=== PATIENT | female | born 1975 | race Caucasian/White ===

== ENCOUNTER 2017-09-19 14:18 | Emergency (ER) | payer MEDICAID ==
--- NOTE | 2017-09-19 14:23 | ER Report ---
History and Physical Time Seen By MD: 14:23 Hx. of Stated Complaint: Laceration left forearm HPI/ROS Patient is a 41-year-old female from [facility] is here with her significant other she was helping to change a tire on a semi-received a laceration to her left upper forearm noted there are 2 lacerations both 3 inches across with venous ooze noted. Injury happened 1 hour ago at unknown truck stop Allergies: Coded Allergies: No Known Drug Allergies (Unverified , 09/19/17) Home Meds Active Scripts Hydrocodone Bit/Acetaminophen (NORCO 5-325 TABLET) 1 Each Tablet, 1 EACH PO Q4- 6H Y for PAIN, #12 TAB Prov:KATERINE HERNANDEZ 09/19/17 Reported Medications Alprazolam (XANAX) 0.5 Mg Tablet, 1 TAB PO TID Y for ANXIETY, TAB 09/19/17 Sumatriptan Succinate (IMITREX) 4 Mg/0.5 Ml Pen.injctr, 4 MG SQ PRN 09/19/17 Past Medical/Surgical History Hysterectomy Reviewed Nurses Notes: Yes Old Medical Records Reviewed: Yes Smoking Status: Unknown if Ever Smoked Exposure to Second Hand Smoke?: No Hx Substance Use Disorder: No Hx Alcohol Use: No Constitutional Vital Sign - Last 24 Hours 09/19/17 09/19/17 14:22 15:20 Temp 98.7 Pulse 90 Resp 16 B/P (MAP) 148/95 132/79 (96) Pulse Ox 95 O2 Delivery Room Air Physical Exam 41 year old female alert oriented anxious crying isolated injury to left upper forearm has 2 lacerations both 3 inches apart they are [id number] horizontally on the forearm M has active venous oozing CMS is intact distal to cut Medical Decision Making ED Course/Re-evaluation ED Course Tetanus was updated IV was initiated prior to suturing patient she was very anxious for the procedure did put in a saline lock and gave her 50 g of fentanyl and she tolerated this well and wound was then injected with 1% lidocaine 6 mL 3 mL per wound with good hemostasis did place 17 sutures in the 1st wound 10 in the 2nd total of 27 sutures with a continuous suture pattern bleeding was stopped did place a dressing on the wound she will see her physician in [place] tomorrow for a wound check Re-evaluation 20 minutes after sutures placed no bleeding is noted there is bruising around the wound will place a large dressing to the wound for tonight have her see her primary care physician who can remove the dressing tomorrow Procedure wound was then injected with 1% lidocaine 6 mL 3 mL per wound with good hemostasis did place 17 sutures in the 1st wound 10 in the 2nd total of 27 sutures with a continuous suture pattern bleeding was stopped did place a dressing on the wound she will see her physician in [place] tomorrow for a wound check Decision to Disposition Date: Sep 19, 2017 Decision to Disposition Time: 15:00 Depart Departure Latest Vital Signs Vital Signs Date Time Temp Pulse Resp B/P (MAP) Pulse Ox O2 Delivery O2 Flow Rate FiO2 09/19/17 15:20 132/79 (96) 09/19/17 14:22 98.7 90 16 95 Room Air Impression: Primary Impression: Accidental laceration Condition: Improved Disposition: HOME OR SELF-CARE New Scripts Hydrocodone Bit/Acetaminophen (NORCO 5-325 TABLET) 1 Each Tablet 1 EACH PO Q4-6H Y for PAIN, #12 TAB Prov: KATERINE HERNANDEZ 09/19/17 Patient Instructions: Laceration (ED) Additional Instructions: Follow-up with your primary care physician in [place] tomorrow . keep the dry sterile dressing on until you're seen, stitches out in 14 days, clean daily mild soap and water KATERINE HERNANDEZ Sep 19, 2017 14:23
[2017-09-19] MEDS ORDERED: ALPR-429 PO (14:31)
[2017-09-19] MEDS ORDERED: SUMA4PEN3 SQ (14:31)
[2017-09-19] MEDS ORDERED: fentaNYL CITR 100 MCG/2 ML AMP IVP ONE (14:35)
[2017-09-19] MEDS ORDERED: DIPHTH/TETANUS/ACEL. PERTUSSIS IM ONLY ONE (14:35)
[2017-09-19] MEDS ORDERED: HYDR-4309 PO (14:58)
[2017-09-19 15:20] VITALS: BP 132/79
== END 2017-09-19 15:25 | disposition home or self-care (01) ==
LOC: ER 14:28
DX: S51.812A Laceration without foreign body of left forearm, initial encounter (principal); W45.8XXA Other foreign body or object entering through skin, initial encounter
CPT/HCPCS: 12005; 90471; 90715; 96374; 99283; J3010